=== PATIENT | male | born 1950 | race Caucasian/White ===

== ENCOUNTER 2024-04-23 05:50 | Observation (INO) | payer OTHER ==
[2024-04-18 11:35] VITALS: BP 150/83; PULSE 60; RESP 17; TEMP 98.1
[2024-04-18 11:53] LABS: APPEARANCE,URINE CLEAR (CLEAR); BILIRUBIN,URINE NEGATIVE (NEGATIVE); COLOR,URINE LIGHT-YELLOW (YELLOW); GLUCOSE, URINE (UA) NEGATIVE (NEGATIVE); KETONES,URINE NEGATIVE (NEGATIVE); LEUKOCYTE ESTERASE ,URINE NEGATIVE Leu/uL (NEGATIVE); NITRATE,URINE NEGATIVE (NEGATIVE); OCCULT BLOOD,URINE NEGATIVE (NEGATIVE); PH,URINE 5.5 (5.0-8.0); PROTEIN,URINE 10 mg/dL (NEGATIVE); UROBILINOGEN,URINE 0.2 mg/dL (0.2-1.0)
[2024-04-18 11:56] LABS: ADD UA MICROSCOPIC YES
[2024-04-18 11:58] LABS: BASOPHILS # (AUTO) 0.05 K/uL (0.00-0.20); BASOPHILS % (AUTO) 0.7 % (0.0-5.0); EOSINOPHILS # (AUTO) 0.19 K/uL (0.00-0.70); EOSINOPHILS % (AUTO) 2.6 % (0.0-8.0); HEMATOCRIT 40.3 % (42-54); IMMATURE GRANULOCYTE ABSOLUTE 0.01 K/uL (0-1); LYMPHOCYTES # (AUTO) 1.7 K/uL (1.0-4.8); LYMPHOCYTES % (AUTO) 22.7 % (21.0-51.0); MEAN CORPUSCULAR HEMOGLOBIN 31.4 pg (27.0-33.0); MEAN CORPUSCULAR HGB CONC 33.5 g/dL (32.0-36.0); MEAN CORPUSCULAR VOLUME 93.7 fL (79-99); MONOCYTES # (AUTO) 0.7 K/uL (0.1-1.0); MONOCYTES % (AUTO) 8.7 % (3.0-13.0); NEUTROPHILS # (AUTO) 4.8 K/uL (1.8-7.7); NEUTROPHILS % (AUTO) 65.2 % (40.0-77.0); PLATELET COUNT (AUTO) 283 K/uL (130-400); RED CELL DISTRIBUTION WIDTH 13.6 % (11.0-15.5); WHITE BLOOD COUNT (AUTO) 7.4 K/uL (4.8-10.8)
[2024-04-18 12:07] LABS: MUCUS,URINE RARE LPF (None Seen); RBC,URINE 0-1 /HPF (0-1); SQUAMOUS EPITHELIAL CELL,UR RARE /HPF (0-2); WBC,URINE 0-1 /HPF (0-1)
[~2024-04-23] VITALS: Ht 177.8 cm; Wt 88.5 kg
[2024-04-23] VITALS (28 sets, daily range): BP systolic 107–158; BP diastolic 50–85; PULSE 56–84; RESP 15–20; TEMP 97.3–98.1; O2SAT 95–98
[2024-04-23] MEDS: ketOROlac 30MG VIAL (30MG/ML) ONE
[2024-04-23] MEDS: ROPivacaine 0.5% 5MG/ML 30ML ONE
[~2024-04-23 05:50] MED LIST: DILANTIN PO; IBUP-2076 PO
[2024-04-23] MEDS ORDERED: BUPIvacaine/PF 0.5% 30ML VIAL ONE (06:45)
[2024-04-23] MEDS ORDERED: ROPivacaine 0.5% 5MG/ML 30ML ONE (06:47)
[2024-04-23] MEDS ORDERED: SUCCINYLCHOLINE CHLORIDE 20 MG/ML 10 ML VIAL ONE (06:57)
[2024-04-23] MEDS ORDERED: LIDOCAINE PF 100MG/5ML (2%) SYRINGE 5ML ONE ×2 (06:57→09:44)
[2024-04-23] MEDS ORDERED: MIDAZOLAM HCL 1 MG/ML 2ML VIAL ONE (06:58)
[2024-04-23] MEDS ORDERED: proPOFol 10 MG/ML 20ML VIAL IV ONE (06:58)
[2024-04-23] MEDS ORDERED: GLYCOPYRROLATE 0.2 MG/ML 5 ML VIAL ONE (06:58)
[2024-04-23] MEDS ORDERED: NEOSTIGMINE METHYLSULFATE 1MG/ML IV ONE (06:58)
[2024-04-23] MEDS ORDERED: dexaMETHasone SOD PHOSPHATE 10MG/ML 1ML VIAL ONE (06:58)
[2024-04-23] MEDS ORDERED: ondanSETRON 4MG INJ ONE (06:59)
[2024-04-23] MEDS ORDERED: rocuRONium bROMide 10MG/1ML 5ML VL ONE (06:59)
[2024-04-23] MEDS ORDERED: FENTanyl CITRate PF 50 MCG/1 ML 2ML VIAL ONE (07:00)
[2024-04-23] MEDS ORDERED: PoTASSium chloRIDE 20MEQ/100ML 100 ML IV PRN (07:30)
[2024-04-23] MEDS ORDERED: traMADol HCL 50 MG TABLET PO PRN (07:30)
[2024-04-23] MEDS ORDERED: ondanSETRON 4MG INJ IVP PRN (07:30)
[2024-04-23] MEDS ORDERED: PoTASSium chl 10% ELIXIR 20MEQ 20 MEQ/15 ML UDCUP PO PRN (07:30)
[2024-04-23] MEDS ORDERED: CYCLOBENZAPRINE HCL 10 MG TABLET PO PRN (07:30)
[2024-04-23] MEDS ORDERED: FERROUS FUMARATE 324 MG TABLET PO PRN (07:30)
[2024-04-23] MEDS ORDERED: PoTASSium chloRIDE 20MEQ ER 20 MEQ ERTAB PO PRN (07:30)
[2024-04-23] MEDS ORDERED: CALCIUM CARB 500MG PO PRN (07:30)
[2024-04-23] MEDS ORDERED: phenylEPHRINE HCL 10 MG/ML 1ML VIAL IV ONE (07:37)
[2024-04-23] MEDS ORDERED: ePHEDrine SULFate 50 MG/ML AMPULE ONE (07:38)
[2024-04-23] MEDS: ceFAZolin SODIUM 2 GM VIAL ONE (07:50)
[2024-04-23] MEDS: TRANEXAMIC ACID 1000MG/10ML ONE (07:55)
[2024-04-23] MEDS ORDERED: PHEN200C5 PO (08:47)
[2024-04-23] MEDS: ketOROlac 15MG/ML VIAL (15MG/ML) ONE (10:24)
[2024-04-23] MEDS: LACTATED RINGERS 1000ML 1,000 ML IV ONE (11:10)
[2024-04-23] MEDS: ceFAZolin SODIUM 2 GM VIAL IVPB SCH (11:10)
[2024-04-23] MEDS: ketOROlac 15MG/ML VIAL (15MG/ML) IV SCH (11:11)
[2024-04-23] MEDS: GABApentin 100 MG CAPSULE PO SCH (11:12)
[2024-04-23] MEDS: polyETHYLene GLYCol 3350 17 GM POWD.PACK PO SCH (12:19)
[2024-04-23] MEDS: doCUSate SODIUM 100 MG CAP PO SCH (12:19)
[2024-04-23] MEDS: DILANTIN 400 MG PO SCH (12:20)
[2024-04-23] MEDS: 0.9%NACL 1000ML 1,000 ML IV SCH (12:20)
[2024-04-23] MEDS ORDERED: ceFAZolin SODIUM 2 GM VIAL IVP SCH (12:30)
[2024-04-23] MEDS: ceFAZolin SODIUM 2 GM VIAL IVP SCH (17:41)
[2024-04-24] VITALS (9 sets, daily range): BP systolic 102–134; BP diastolic 51–77; PULSE 72–94; RESP 18–20; TEMP 98.4–99.5; O2SAT 94–96
[2024-04-24 05:18] LABS: HEMATOCRIT 30.1 % (42-54); MEAN CORPUSCULAR HEMOGLOBIN 30.5 pg (27.0-33.0); MEAN CORPUSCULAR HGB CONC 33.6 g/dL (32.0-36.0); MEAN CORPUSCULAR VOLUME 90.9 fL (79-99); RED BLOOD CELL COUNT(AUTO) 3.31 MIL/uL (4.50-6.20); RED CELL DISTRIBUTION WIDTH 12.9 % (11.0-15.5); WHITE BLOOD COUNT (AUTO) 10.9 K/uL (4.8-10.8)
[2024-04-24 05:33] LABS: CREATININE 0.9 mg/dL (0.5-1.3); POTASSIUM 4.4 mmol/L (3.5-5.1)
[2024-04-24] MEDS ORDERED: ketOROlac 15MG/ML VIAL (15MG/ML) IV PRN (07:30)
[2024-04-24] MEDS: ASPIRIN 325MG EC TAB PO SCH (08:38)
[2024-04-24] MEDS: HYDROcodone/APAP 5/325 1 TAB TABLET PO PRN (16:55)
[2024-04-25] VITALS: BP 132/76; PULSE 96; RESP 20; TEMP 99.3
[2024-04-25 04:00] VITALS: BP 116/61; PULSE 92; RESP 20; TEMP 99
[2024-04-25 06:29] VITALS: PULSE 92; RESP 18; O2SAT 96
[2024-04-25 07:10] VITALS: BP 119/65; PULSE 92; RESP 20; TEMP 98.4
[2024-04-25 08:00] VITALS: O2SAT 99
[2024-04-25 11:10] VITALS: BP 132/77; PULSE 89; RESP 20; TEMP 98.8
[2024-04-26] MEDS ORDERED: BisaCODYL 10 MG SUPP.RECT RC PRN (07:30)
== END 2024-04-25 17:51 ==
LOC: DAH 05:50 → DAHIP 07:23 → 4DH 11:00
PROVIDERS: ADMIT Student in an Organized Health Care Education/Training Program; ATTEND Student in an Organized Health Care Education/Training Program
DX: M17.12 Unilateral primary osteoarthritis, left knee (principal); D62 Acute posthemorrhagic anemia; G89.18 Other acute postprocedural pain; Z79.899 Other long term (current) drug therapy
CPT/HCPCS: 85025; 87086; 84134; 86140; 81001; 36415 ×2; 87641; 64447; 27447; 96374; 96376; 96375; 73560; 97161; 97116 ×6; 80048; 85027; 97530 ×4; G0378 ×52; A4663; A4215 ×2; A4600; J7120; J3010; J3490 ×4; J1100; J0330; J2003 ×2; J2250; J2704; J2405; J1885 ×4; J2710; J2795 ×2; J2371; J0690 ×3; C1713 ×2; C1776 ×2; A4649 ×2; A4930; A6255; A5120; A4223 ×2; A4213; A4222; A4221; A4216; J0665